=== PATIENT | female | born 1980 | race African-American/Black ===

== ENCOUNTER 2017-08-24 10:00 | Day surgery (SDC) | payer OTHER ==
[2017-08-24] VITALS (16 sets, daily range): BP systolic 104–118; BP diastolic 47–59; PULSE 60–80; RESP 11–22; Ht 175.3 cm; Wt 79.2 kg
[~2017-08-24] VITALS: Ht 175.3 cm; Wt 79.2 kg
[~2017-08-24 10:00] MED LIST: CEFAZOLIN 2 GM/50 ML (PMX) 50 ML IVPB ONE; LIDOCAINE 2% (SDV) 5 ML INJ ONE; SOD CHLORIDE 0.9% 1,000 ML IV SCH
[2017-08-24] MEDS ORDERED: BUPIVACAINE 0.25% (MPF) 30 ML INJ ONE (13:19)
[2017-08-24] MEDS ORDERED: CEFAZOLIN 1 GM INJ ONE (13:42)
[2017-08-24] MEDS ORDERED: PROPOFOL 40 ML ONE (13:42)
[2017-08-24] MEDS ORDERED: DEXAMETHASONE 4 MG/ML 1 ML INJ ONE (13:58)
--- NOTE | 2017-08-24 14:05 | OPR ---
Date/Time of Note Date/Time of Note DATE: 08/24/17 TIME: 14:03 Operative Report Procedure Date: Aug 24, 2017 Preoperative Diagnosis left flank mass Postoperative Diagnosis left flank mass Operation/Procedure Performed 1. excision of left flank mass 9 cm incision 5 cm mass 2. localized adjacent tissue transfer with the use of skin flaps 18 sq cm defect 3. therapeutic injection of subcutaneous local anesthesia Surgeon see signature line [employer] Manager none Anesthesia Type: general Estimated Blood Loss: 0 - 10 ml's Transfusion none Specimen left flank mass Grafts/Implants none Complications none Pt Condition Post Procedure: stable Indications This is a 36-year-old female with a left flank mass. She requests excision of the left flank mass. Risks alternatives benefits and percent were discussed the patient. Patient expressed understanding consents to the operation. Procedure Description Patient is taken to the OR and prepped and draped in usual sterile fashion. Surgical timeout was performed. IV antibiotics given. Left flank transverse incision is made with a 10 blade. Dissection Carrs carried onto the mass. The mass and circumferentially excised. Due to tissue defect localized adjacent tissue transfer with these of skin flaps was performed. Multilayer closure with interrupted 3-0 Vicryl and skin jacques. Therapeutic subcutaneous local anesthesia was injected at the incision site. Dry dressings were applied. Amilcar SUNG Aug 24, 2017 14:05
[2017-08-24] MEDS ORDERED: ONDANSETRON 4 MG INJ ONE ×2 (14:06→14:36)
[2017-08-24] MEDS ORDERED: HYDROCODONE/APAP (5/325) TAB PO ONE (14:30)
[2017-08-24] MEDS ORDERED: HYDROmorphONE (0.2 MG/ML) 10ML SYG IV ONE (14:35)
[2017-08-24] MEDS: HYDROmorphONE (0.2 MG/ML) 10ML SYG IV PRN ×2 (14:41→14:48)
[2017-08-24] MEDS ORDERED: HYDROmorphONE (0.2 MG/ML) 10ML SYG IV PRN ×2 (15:00)
[2017-08-24] MEDS ORDERED: EPHEDrine SULFATE 50 MG/5 ML SYG IV PRN (15:00)
[2017-08-24] MEDS ORDERED: LABETALOL HCL 20MG INJ IV PRN (15:00)
[2017-08-24] MEDS ORDERED: DIPHENHYDRAMINE 50 MG INJ IV PRN (15:00)
[2017-08-24] MEDS ORDERED: hydrALAzine 20 MG INJ IV PRN (15:00)
[2017-08-24] MEDS ORDERED: FENTAnyl 50 MCG/ML VIAL IV PRN ×3 (15:00)
[2017-08-24] MEDS ORDERED: OXYCODONE/ACETAMINOPHEN (5/325) TAB PO PRN ×2 (15:00)
[2017-08-24] MEDS ORDERED: KETOROLAC 30 MG INJ IV PRN (15:00)
[2017-08-24] MEDS ORDERED: ONDANSETRON 4 MG INJ IV PRN (15:00)
[2017-08-24] MEDS ORDERED: MEPERIDINE 25 MG INJ IV PRN (15:00)
== END 2017-08-24 16:38 | disposition home or self-care (01) ==
LOC: SDS 10:00
PROVIDERS: ATTEND Surgery
DX: R22.2 Localized swelling, mass and lump, trunk (principal)
CPT/HCPCS: 14001; 84703; 88307; J0690; J1100; J1170; J2405; Z7512; Z7610